=== PATIENT | male | born 1985 | race Caucasian/White ===

== ENCOUNTER 2021-08-08 18:29 | Emergency (ER) | payer OTHER ==
[~2021-08-08] VITALS: Ht 165.1 cm; Wt 81.8 kg
[2021-08-08] MEDS ORDERED: ChlordiazePOXIDE HCL 25 MG CAPSULE PO ONE (19:00)
[2021-08-08] MEDS ORDERED: ACETAMINOPHEN 500 MG TABLET PO ONE (19:00)
[2021-08-08 19:39] LABS: COVID AG,FIA SOURCE NASOPHARYNGEAL
[2021-08-08 21:16] VITALS: BP 101/70
== END 2021-08-08 23:44 | disposition home or self-care (01) ==
LOC: EMS 18:32
DX: F10.239 Alcohol dependence with withdrawal, unspecified (principal); R09.81 Nasal congestion; Z20.822 Contact with and (suspected) exposure to COVID-19
CPT/HCPCS: 99283